=== PATIENT | female | born 1965 | race American Indian/Alaskan Native ===

== ENCOUNTER 2019-07-16 17:44 | Emergency (ER) | payer OTHER ==
[2019-07-16] MEDS ORDERED: Ondansetron 4 MG Tab.DIS PO ONE (18:32)
[2019-07-16] MEDS ORDERED: Ketorolac 60 MG/2 ML SDV IM ONE (18:32)
--- NOTE | 2019-07-16 18:38 | EDM.PDOC ---
ED HPI GENERAL MEDICAL PROBLEM - General Chief Complaint: Headache Stated Complaint: NAUSEA/HEADACHE Time Seen by Provider: 07/16/19 18:20 Source of Information: Reports: Patient History Limitations: Reports: No Limitations - History of Present Illness INITIAL COMMENTS - FREE TEXT/NARRATIVE: 53-year-old female presents for evaluation and treatment of headache. Patient reports she's been ill with a sinus infection for several weeks. She states that she was seen at the [facility] and put on Levaquin, 7 day course. She has handy finished this on July 12. She states that she has a significant headache. She also reports facial pressure, postnasal drip, not a nausea and chills. She denies any fevers, chest pain or shortness of breath. Has been taking [id number] Mucinex, Tylenol Motrin for symptoms. Patient reports she was recently been camping. Headache Pain Score (Numeric/FACES): 6 - Related Data Allergies Allergy/AdvReac Type Severity Reaction Status Date / Time No Known Allergies Allergy Verified 07/16/19 17:52 Home Meds: Home Meds Amoxicillin/Clavulanate K [Augmentin 875-125 MG] 1 tab PO BID #20 tab 07/16/19 [ Rx] Ondansetron [Zofran ODT] 4 mg PO Q6H PRN #20 tab.dis 07/16/19 [Rx] Past Medical History Cardiovascular History: Reports: None Respiratory History: Reports: None Gastrointestinal History: Reports: Colon Polyp, Diverticulosis [employer] History: Reports: Other Musculoskeletal History: Joint Pain Neurological History: Reports: None Psychiatric History: Reports: None Endocrine/Metabolic History: Reports: None Hematologic History: Reports: None Immunologic History: Reports: None Oncologic (Cancer) History: Reports: None Dermatologic History: Reports: None - Infectious Disease History Infectious Disease History: Reports: Hepatitis A - Past Surgical History Head Surgeries/Procedures: Reports: None HEENT Surgical History: Reports: Tonsillectomy Female Surgical History: Reports: Section Social & Family History - Tobacco Use Smoking Status *Q: Current Every Day Smoker Years of Tobacco use: 25 Packs/Tins Daily: 0.5 - Caffeine Use Caffeine Use: Reports: None - Recreational Drug Use Recreational Drug Use: No ED ROS GENERAL - Review of Systems Review Of Systems: See Below Constitutional: Reports: Chills. Denies: Fever HEENT: Reports: Other (post nasal drip, sinus pressure) Respiratory: Denies: Shortness of Breath, Cough Cardiovascular: Denies: Chest Pain GI/Abdominal: Reports: Nausea. Denies: Vomiting Skin: Denies: Rash Neurological: Reports: Headache - Physical Exam Exam: See Below Exam Limited By: No Limitations General Appearance: Alert, WD/WN, No Apparent Distress, Obese Eye Exam: Bilateral Eye: Normal Inspection Ears: Normal External Exam, Normal Canal, Hearing Grossly Normal, Normal TMs Nose: Normal Inspection Throat/Mouth: Normal Inspection, Normal Lips, Normal Oropharynx, Normal Voice, No Airway Compromise Head Exam: Other (sinus tenderness maxillary sinuses) Neck: Normal Inspection Respiratory/Chest: No Respiratory Distress, Lungs Clear, Normal Breath Sounds Cardiovascular: Normal Peripheral Pulses, Regular Rate, Rhythm, No Murmur Neuro Exam (Abbreviated): Alert, Oriented, Normal Cognition Psychiatric: Normal Affect, Normal Mood Skin Exam: Warm, Dry, Normal Color Course - Vital Signs Last Recorded V/S: Last Vital Signs Temp 98.8 F 07/16/19 19:02 Pulse 88 07/16/19 19:02 Resp 18 07/16/19 19:02 BP 142/92 H 07/16/19 19:02 Pulse Ox 99 07/16/19 19:02 - Orders/Labs/Meds Meds: Medications Discontinued Medications Generic Name Dose Route Start Last Admin Trade Name Trung PRN Reason Stop Dose Admin Ketorolac Tromethamine 60 mg 07/16/19 18:32 07/16/19 18:59 Toradol IM 07/16/19 18:33 60 mg ONETIME ONE Administration Ondansetron HCl 4 mg 07/16/19 18:32 07/16/19 18:58 Zofran Odt PO 07/16/19 18:33 4 mg ONETIME ONE Administration - Re-Assessments/Exams Free Text/Narrative Re-Assessment/Exam: 07/16/19 18:30 Discussed labs and imaging with the patient. patient would like to try another course of antibiotics. She'll follow-up in the clinic, and if not better and then pursue labs and imaging. Discussed possibility of [place] and she feels that this is unlikely. We'll discharge home. Discharge instructions as documented. Departure - Departure Time of Disposition: 18:34 Disposition: Home, Self-Care 01 Condition: Good Clinical Impression: Sinusitis - Discharge Information *PRESCRIPTION DRUG MONITORING PROGRAM REVIEWED*: No *COPY OF PRESCRIPTION DRUG MONITORING REPORT IN PATIENT MARANDA: No Prescriptions: Amoxicillin/Clavulanate K [Augmentin 875-125 MG] 1 tab PO BID #20 tab Ondansetron [Zofran ODT] 4 mg PO Q6H PRN #20 tab.dis PRN Reason: Nausea Instructions: Sinusitis, Adult Referrals: PCP,None [Primary Care Provider] - Forms: ED Department Discharge Additional Instructions: make sure you are drinking plenty of fluids. Augmentin as prescribed. 1 tab twice a day for 10 days. Take with food. Recommend yogurt or a probiotic to prevent side effects of upset stomach, nausea and diarrhea. Zofran 1 tab sublingual every 6 hours as needed for nausea. Follow-up with your primary care provider if not much better in 10-14 days. Please return to the ER for symptoms change or worsen.
== END 2019-07-16 19:10 | disposition home or self-care (01) ==
LOC: JD.ED 17:44
DX: J32.9 Chronic sinusitis, unspecified (principal); F17.210 Nicotine dependence, cigarettes, uncomplicated; Z98.890 Other specified postprocedural states
CPT/HCPCS: 96372; 99283; A9270; J1885